=== PATIENT | male | born 1955 | race Caucasian/White ===

== ENCOUNTER 2021-02-07 13:57 | Emergency (ER) | payer SELFPAY ==
[~2021-02-07] VITALS: Ht 188 cm; Wt 95.5 kg
[~2021-02-07 13:57] MED LIST: BAYER CHEWABLE81 MG PO; EFFEXOR75 MG PO; INGREZZA; PEPCID AC20 MG PO; VASOTEC20 MG PO
[2021-02-07 14:22] VITALS: Ht 188 cm; Wt 95.5 kg
[2021-02-07 15:42] VITALS: BP 134/86
[2021-02-07 19:24] LABS: BILIRUBIN NEGATIVE (NEGATIVE); KETONE 1+ mg/dL (< 1+); NITRITE NEGATIVE (NEGATIVE); PH 5.5 (5.0-8.0); UROBILINOGEN NORMAL mg/dL (< 2)
[2021-02-07] MEDS ORDERED: STERAPRED DS 1010 MG PO (19:37)
== END 2021-02-07 20:15 | disposition home or self-care (01) ==
LOC: D.ER 13:57
PROVIDERS: Family Medicine
DX: M54.16 Radiculopathy, lumbar region (principal); I10 Essential (primary) hypertension; Z95.5 Presence of coronary angioplasty implant and graft